=== PATIENT | male | born 1990 | race African-American/Black ===

== ENCOUNTER 2018-12-03 02:31 | Emergency (ER) | payer OTHER ==
[~2018-12-03] VITALS: Ht 182.9 cm; Wt 65.3 kg
[2018-12-03 02:35] VITALS: BP 101/61
== END 2018-12-03 05:20 | disposition home or self-care (01) ==
LOC: ER 02:31
DX: S00.83XA Contusion of other part of head, initial encounter (principal); S60.511A Abrasion of right hand, initial encounter; V89.2XXA Person injured in unspecified motor-vehicle accident, traffic, initial encounter; Y92.89 Other specified places as the place of occurrence of the external cause; Y93.89 Activity, other specified; Y99.8 Other external cause status